=== PATIENT | male | born 1985 | race Caucasian/White ===

== ENCOUNTER 2020-11-20 17:40 | Emergency (ER) | payer BC ==
[~2020-11-20] VITALS: Ht 177.8 cm; Wt 100.0 kg
[2020-11-20 17:53] VITALS: BP 124/83
== END 2020-11-20 22:09 | disposition left against medical advice (07) ==
LOC: ER 17:40
DX: Z53.21 Procedure and treatment not carried out due to patient leaving prior to being seen by health care provider (principal)